=== PATIENT | female | born 1980 | race Two or more races ===

== ENCOUNTER 2016-04-19 16:33 | Emergency (ER) | payer SELFPAY ==
[2016-04-19] MEDS ORDERED: PROPARACAINE HCL 0.5% 300 GTTS/BOT SOLN.DROP ONE (18:13)
== END 2016-04-19 19:00 | disposition home or self-care (01) ==
LOC: ED 16:33
DX: H10.31 Unspecified acute conjunctivitis, right eye (principal); F17.210 Nicotine dependence, cigarettes, uncomplicated
CPT/HCPCS: 99283; 99282; A9270